=== PATIENT | male | born 1990 | race African-American/Black ===

== ENCOUNTER 2022-11-20 07:47 | Emergency (ER) | payer MEDICAID, OTHER ==
[~2022-11-20] VITALS: Ht 170.2 cm; Wt 75.0 kg
[2022-11-20 07:54] VITALS: BP 146/89
[2022-11-20] MEDS ORDERED: TETANUS, DIPHTHERIA, PERTUSSIS VAC/PF 0.5ML (>10YR OLD) IM ONE (09:30)
[2022-11-20] MEDS ORDERED: BO1 TP (10:37)
== END 2022-11-20 10:49 | disposition home or self-care (01) ==
LOC: ER 07:47
DX: T25.222A Burn of second degree of left foot, initial encounter (principal); T31.0 Burns involving less than 10% of body surface; T79.9XXA Unspecified early complication of trauma, initial encounter; X10.2XXA Contact with fats and cooking oils, initial encounter; Y93.89 Activity, other specified; Y92.89 Other specified places as the place of occurrence of the external cause; Y99.8 Other external cause status
CPT/HCPCS: 16020; 99282; Z7610; 90715

== ENCOUNTER 2022-12-30 09:41 | Emergency (ER) | payer OTHER ==
[~2022-12-30] VITALS: Ht 177.8 cm; Wt 100.0 kg
[~2022-12-30 09:41] MED LIST: BO1 TP
[2022-12-30 09:43] VITALS: BP 137/72
== END 2022-12-30 10:30 | disposition home or self-care (01) ==
LOC: ER 09:41
DX: Z48.00 Encounter for change or removal of nonsurgical wound dressing (principal)
CPT/HCPCS: 99281